=== PATIENT | female | born 1980 | race American Indian/Alaskan Native ===

== ENCOUNTER 2021-12-16 12:07 | Emergency (ER) | payer OTHER ==
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
[2021-12-16] MEDS ORDERED: KETOROLAC 10 MG TAB PO ONE (14:21)
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
[2021-12-16 15:37] VITALS: BP 188/99
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
== END 2021-12-16 15:39 | disposition home or self-care (01) ==
LOC: ED 12:07
DX: M25.562 Pain in left knee (principal); Z88.6 Allergy status to analgesic agent; V89.2XXA Person injured in unspecified motor-vehicle accident, traffic, initial encounter; Y93.89 Activity, other specified; Y92.89 Other specified places as the place of occurrence of the external cause; Y99.8 Other external cause status
CPT/HCPCS: 99283